=== PATIENT | female | born 1985 | race Caucasian/White ===

== ENCOUNTER 2021-08-08 09:19 | Emergency (ER) | payer SELFPAY ==
[~2021-08-08] VITALS: Ht 170.2 cm; Wt 90.9 kg
[2021-08-08 09:55] VITALS: BP 133/113; TEMP 98.4
[2021-08-08] MEDS ORDERED: FLONASE NASAL S16 GM NS (10:13)
[2021-08-08] MEDS ORDERED: SUDAFED60 MG PO (10:13)
[2021-08-08] MEDS ORDERED: ZOFRAN ODT4 MG PO (10:14)
[2021-08-08 10:27] VITALS: PULSE 81
== END 2021-08-08 10:27 | disposition home or self-care (01) ==
LOC: COL.ER 09:19
DX: H69.91 Unspecified Eustachian tube disorder, right ear (principal); J06.9 Acute upper respiratory infection, unspecified

== ENCOUNTER 2022-01-24 13:54 | Emergency (ER) | payer BC ==
[~2022-01-24] VITALS: Ht 167.6 cm; Wt 90.9 kg
[~2022-01-24 13:54] MED LIST: FLONASE NASAL S16 GM NS; SUDAFED60 MG PO; ZOFRAN ODT4 MG PO
[2022-01-24 14:12] VITALS: TEMP 98
[2022-01-24] MEDS ORDERED: AMOXICILLIN 8751 TAB PO (15:50)
[2022-01-24] MEDS ORDERED: CILOXAN 5 ML5 ML OT (15:50)
[2022-01-24 16:00] VITALS: BP 137/79; PULSE 87
== END 2022-01-24 16:04 | disposition home or self-care (01) ==
LOC: COL.ER 13:54
DX: H60.91 Unspecified otitis externa, right ear (principal); J01.90 Acute sinusitis, unspecified; F17.290 Nicotine dependence, other tobacco product, uncomplicated

== ENCOUNTER 2022-03-13 11:54 | Emergency (ER) | payer BC ==
[~2022-03-13] VITALS: Ht 167.6 cm; Wt 90.9 kg
[~2022-03-13 11:54] MED LIST changes: +AMOXICILLIN 8751 TAB PO; +CILOXAN 5 ML5 ML OT
[2022-03-13 12:04] VITALS: BP 157/87; TEMP 98.4
[2022-03-13] MEDS ORDERED: BACTRIM DS 8001 TAB PO (13:06)
[2022-03-13 13:15] VITALS: PULSE 63
== END 2022-03-13 13:15 | disposition home or self-care (01) ==
LOC: COL.ER 11:54
DX: S10.86XA Insect bite of other specified part of neck, initial encounter (principal); R59.0 Localized enlarged lymph nodes; Z28.310 Unvaccinated for COVID-19; W57.XXXA Bitten or stung by nonvenomous insect and other nonvenomous arthropods, initial encounter